=== PATIENT | female | born 1965 | race Caucasian/White ===

== ENCOUNTER 2022-02-07 19:39 | Emergency (ER) | payer MEDICARE, OTHER ==
[~2022-02-07] VITALS: Ht 165.1 cm; Wt 96.2 kg
--- NOTE | 2022-02-07 20:00 | NUR ---
Patient BIB [facility]x episode of seizure today. 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 Per report, seizure lasted for about 20 secs. Patient also c/o left shoulder pain due to fall out of bed during seizure episode
[2022-02-07] MEDS ORDERED: POTA10CA43 PO (20:11)
[2022-02-07] MEDS ORDERED: LEVE500T20 PO (20:11)
[2022-02-07] MEDS ORDERED: LORA-259 PO (20:11)
[2022-02-07] MEDS ORDERED: QUET100T PO (20:11)
[2022-02-07] MEDS ORDERED: OMEP40CA21 PO (20:11)
[2022-02-07] MEDS ORDERED: TIZA4TAB5 PO (20:11)
[2022-02-07] MEDS ORDERED: GABA-532 PO (20:11)
[2022-02-07] MEDS ORDERED: QUET50TA PO (20:11)
[2022-02-07] MEDS ORDERED: BUPR1TAB45 SL (20:11)
[2022-02-07] MEDS ORDERED: LURA80TA PO (20:11)
[2022-02-07] MEDS ORDERED: BENZ1TAB7 PO (20:11)
[2022-02-07] MEDS ORDERED: FURO40TA5 PO (20:11)
--- NOTE | 2022-02-07 21:05 | NUR ---
Dr Bowles in room for MICHAEL
[2022-02-07 21:16] LABS: *BILIRUBIN,URIN NEGATIVE (NEGATIVE); *BLOOD, URINE NEGATIVE (NEGATIVE); *CLARITY,URINE CLEAR (CLEAR); *COLOR,URINE YELLOW (YELLOW); *KETONES,URINE NEGATIVE (NEGATIVE); *UROBILINOGEN,URINE 0.2 E.U./dl (NORMAL); LEUKOCYTE ESTERASE ,URINE NEGATIVE (NEGATIVE); NITRITE, URINE NEGATIVE (NEGATIVE); PH,URINE 5.5 (5.0-8.0); UGLUCOSE NEGATIVE (NEGATIVE)
--- NOTE | 2022-02-07 21:21 | NUR ---
patient went for CT
[2022-02-07 21:30] LABS: HEMATOCRIT 37.8 % (31.2-41.9); MEAN CORPUSCULAR HEMOGLOBIN 30.5 uug (24.7-32.8); MEAN CORPUSCULAR VOLUME 89.2 fL (75.5-95.3); PLATELET COUNT (AUTO) 346 K/uL (179-408)
[2022-02-07 21:32] LABS: *AMPHETAMINE, URINE NEGATIVE (NEGATIVE); *CANNABINOID, URINE NEGATIVE (NEGATIVE); *COCCAINE, URINE NEGATIVE (NEGATIVE); *OPIATE, URINE NEGATIVE (NEGATIVE); *PHENCYCLIDINE SCREEN,URINE NEGATIVE (NEGATIVE)
--- NOTE | 2022-02-07 21:35 | NUR ---
Patient back from CT
[2022-02-07 21:49] LABS: ETHANOL < 3 MG/DL (0-0)
[2022-02-07 21:50] LABS: ALANINE AMINOTRANSFERASE 18 U/L (14-59); ALKALINE PHOSPHATASE 85 U/L (50-136); ASPARTATE AMINOTRANSFERASE 18 U/L (15-37); BILIRUBIN,DIRECT 0.1 mg/dL (0.0-0.2); BILIRUBIN,TOTAL 0.4 mg/dL (0.2-1.0); CARBON DIOXIDE 37 mmol/L (21-32); CHLORIDE 98 mmol/L (98-107); CREATININE 1.1 mg/dL (0.6-1.3); GLUCOSE 140 mg/dL (74-106); TOTAL PROTEIN, SERUM 6.8 g/dL (6.4-8.2); UREA NITROGEN, BLOOD 11 mg/dL (7-18)
[2022-02-07 22:04] LABS: POTASSIUM 2.8 mmol/L (3.5-5.1)
[2022-02-07] MEDS ORDERED: POTASSIUM CHLORIDE 20 MEQ TAB.PRT.SR PO ONE (22:15)
[2022-02-07] MEDS ORDERED: POTASSIUM CHLORIDE 50 ML IV SCH (22:15)
[2022-02-07] MEDS ORDERED: POTASSIUM CHLORIDE 50 ML ONE (22:20)
[2022-02-07] MEDS ORDERED: POTASSIUM CHLORIDE 20 MEQ TAB.PRT.SR ONE (22:23)
[2022-02-07] MEDS ORDERED: ACETAMINOPHEN/CODEINE 300-30 MG TABLET ONE (22:24)
[2022-02-07] MEDS ORDERED: MAGNESIUM SULFATE/D5W 200 ML ONE (22:25)
[2022-02-07] MEDS ORDERED: ACETAMINOPHEN/CODEINE 300-30 MG TABLET PO ONE (22:30)
[2022-02-07] MEDS: MAGNESIUM SULFATE/D5W 100 ML IV SCH ×2 (22:45→23:15)
[2022-02-08] MEDS ORDERED: MORPHINE SULFATE 4 MG/1 ML DISP.SYRIN IM ONE (00:15)
[2022-02-08] MEDS ORDERED: MORPHINE SULFATE 4 MG/1 ML DISP.SYRIN ONE (00:26)
[2022-02-08] MEDS ORDERED: levETIRAcetam 500 MG/5 ML VIAL IV ONE (02:39)
[2022-02-08] MEDS ORDERED: levETIRAcetam IV 1,000 MG in IV DEXTROSE 5% 100 ML IV ONE (02:45)
--- NOTE | 2022-02-08 03:00 | NUR ---
called [facility] ambulance for transport
[2022-02-08] MEDS ORDERED: LEVE1000 PO (03:37)
--- NOTE | 2022-02-08 03:41 | NUR ---
Patient discharged to home in stable condition. Written and verbal after care instructions given. Patient verbalizes understanding of instructions. Stressed follow up or return to ER for worsening s/s. Patient is transported via [facility] ambulance to [facility]. Patient is A/Ox4, no SOB, no CP, no distress noted.
[2022-02-08 03:42] VITALS: BP 126/80
== END 2022-02-08 03:40 ==
LOC: ER 19:41
DX: G40.909 Epilepsy, unspecified, not intractable, without status epilepticus (principal); E87.6 Hypokalemia; M32.9 Systemic lupus erythematosus, unspecified; M19.012 Primary osteoarthritis, left shoulder; F20.9 Schizophrenia, unspecified; Z88.0 Allergy status to penicillin; Z87.440 Personal history of urinary (tract) infections; J44.9 Chronic obstructive pulmonary disease, unspecified; K21.9 Gastro-esophageal reflux disease without esophagitis; Z79.899 Other long term (current) drug therapy
CPT/HCPCS: 36415; 70450; 73030; 80048; 80076; 80307; 80320; 81003; 85025; 96365; 96366; 96372; 96375; 96376; 99285; J1953; J2270; J3475; J3480; G0480